=== PATIENT | female | born 1965 ===

== ENCOUNTER 2017-03-14 11:30 | Inpatient (IN) | payer OTHER ==
[~2017-03-14] VITALS: Ht 157.5 cm; Wt 57.6 kg
[2017-03-16] MEDS ORDERED: CLONAZEPAM0.5 MG PO (12:05)
[2017-03-16] MEDS ORDERED: CLONAZEPAM2 MG PO (12:05)
[2017-03-16] MEDS ORDERED: AMBIEN10 MG PO (12:05)
[2017-03-16] MEDS ORDERED: WELLBUTRIN XL300 MG PO (12:06)
[2017-03-16] MEDS ORDERED: CATAFLAN PO (12:06)
[2017-03-16] MEDS ORDERED: GABAPENTIN400 MG PO (12:06)
[2017-03-16] MEDS ORDERED: VALTREX1000 MG PO (12:07)
[2017-04-06] MEDS ORDERED: DOCUSATE SODIU100 MG PO (11:52)
[2017-04-06] MEDS ORDERED: CLONAZEPAM1 MG PO (11:52)
[2017-04-06] MEDS ORDERED: PERCOCET 5-3251 EACH PO (11:52)
== END 2017-04-06 15:28 | disposition home or self-care (01) | DRG 472 ==
LOC: SURH 03-21 07:00 → O/R 04-05 04:30 → PED 04-05 04:30 → SURH 04-05 10:00 → PED 04-05 15:23
PROVIDERS: Orthopaedic Surgery Orthopaedic Surgery of the Spine
PROC: 0RG20A0 Fusion of 2 or more Cervical Vertebral Joints with Interbody Fusion Device, Anterior Approach, Anterior Column, Open Approach (ICD-10-PCS; 2017-04-05)
PROC: 0RT30ZZ Resection of Cervical Vertebral Disc, Open Approach (ICD-10-PCS; principal; 2017-04-05 12:00)
DX: M47.12 Other spondylosis with myelopathy, cervical region (principal); M50.021 Cervical disc disorder at C4-C5 level with myelopathy